=== PATIENT | male | born 1940 | race Caucasian/White ===

== ENCOUNTER → 2017-02-06 | Outpatient (CLI) | payer MEDICARE, OTHER | END | disposition home or self-care (01) | LOC: CFH 11:38 | PROVIDERS: ATTEND Nurse Practitioner Primary Care | DX: M25.421 Effusion, right elbow (principal); I10 Essential (primary) hypertension ==

== ENCOUNTER → 2017-09-16 | Outpatient (CLI) | payer MEDICARE, OTHER | END | disposition home or self-care (01) | LOC: CFH 15:25 | PROVIDERS: ATTEND Nurse Practitioner Primary Care | DX: N50.3 Cyst of epididymis (principal); N50.89 Other specified disorders of the male genital organs; R53.83 Other fatigue; I10 Essential (primary) hypertension; R23.8 Other skin changes; M25.421 Effusion, right elbow; F06.4 Anxiety disorder due to known physiological condition; M25.521 Pain in right elbow; N50.9 Disorder of male genital organs, unspecified; R73.01 Impaired fasting glucose | CPT/HCPCS: 76870; 93975 ==

== ENCOUNTER → 2017-11-07 | Outpatient (CLI) | payer MEDICARE, OTHER ==
[2017-11-07 15:01] LABS: BASOPHILS # (AUTO) 0.02 x10^3/uL (0-0.1); BASOPHILS % (AUTO) 0 % (0-1); EOSINOPHILS % (AUTO) 3 % (1-7); LYMPHOCYTES # (AUTO) 1.71 x10^3/uL (1-3.4); LYMPHOCYTES % (AUTO) 21 % (22-44); MD NO; MEAN CORPUSCULAR HEMOGLOBIN 31.5 pg (27.5-34.5); MEAN CORPUSCULAR VOLUME 92.7 fL (81-97); MONOCYTES # (AUTO) 0.77 x10^3/uL (0.2-0.8); MONOCYTES % (AUTO) 10 % (2-9); NEUTROPHILS # (AUTO) 5.36 x10^3/uL (1.8-6.8); NEUTROPHILS % (AUTO) 67 % (42-75); PLATELET COUNT 196 x10^3/uL (130-400); RED BLOOD COUNT 5.37 x10^6/uL (4.38-5.82); RED CELL DISTRIBUTION WIDTH 14.7 % (9.4-14.8)
[2017-11-07 15:07] LABS: MICROSCOPIC NOT IND
[2017-11-07 15:14] LABS: ALANINE AMINOTRANSFERASE 25 U/L (12-78); ALBUMIN 3.9 g/dL (3.4-5.0); ANION GAP 9 mmol/L (5-15); CALCIUM 9.3 mg/dL (8.5-10.1); CHLORIDE 110 mmol/L (98-107)
[2017-11-07 15:16] LABS: ALKALINE PHOSPHATASE 53 U/L (45-117); BILIRUBIN,TOTAL 0.4 mg/dL (0.2-1.0); TOTAL PROTEIN 6.9 g/dL (6.4-8.2)
[2017-11-07 15:27] LABS: INTERNATIONAL NORMALIZED RATIO 0.98 (0.93-1.1); PROTHROMBIN TIME 10.2 Seconds (9.6-11.5)
== END ==
LOC: STAR 13:52
PROVIDERS: ATTEND Student in an Organized Health Care Education/Training Program
DX: Z01.818 Encounter for other preprocedural examination (principal); R94.31 Abnormal electrocardiogram [ECG] [EKG]
CPT/HCPCS: 36415; 71046; 80053; 81003; 85025; 85610; 85730; 87086; 93005

== ENCOUNTER 2017-11-14 05:57 | Day surgery (SDC) | payer MEDICARE, OTHER ==
[~2017-11-14] VITALS: Ht 177.8 cm; Wt 84.9 kg
[~2017-11-14 05:57] MED LIST: LISI-170 PO; MULT-658 PO
[2017-11-14] MEDS ORDERED: LACTATED RINGERS 1,000 ML IV SCH (06:31)
[2017-11-14 06:53] VITALS: BP 154/92
[2017-11-14] MEDS ORDERED: BUPIVACAINE/PF 0.25% ONE (07:26)
[2017-11-14] MEDS ORDERED: EPINEPHRINE 1 MG/ML, 1ML ONE (07:27)
[2017-11-14] MEDS ORDERED: GABAPENTIN 300 MG CAPSULE PO ONE (07:30)
[2017-11-14] MEDS ORDERED: ACETAMINOPHEN 500 MG TABLET PO ONE (07:30)
[2017-11-14] MEDS ORDERED: FAMOTIDINE 20 MG TABLET PO ONE (07:30)
[2017-11-14] MEDS ORDERED: METOCLOPRAMIDE 10MG TABLET PO ONE (07:30)
[2017-11-14] MEDS ORDERED: TAMSULOSIN 0.4 MG CAP.ER.24H PO ONE (07:30)
[2017-11-14] MEDS ORDERED: FENTANYL PF 100 MCG/2ML ONE (07:36)
[2017-11-14] MEDS ORDERED: PROPOFOL 10 MG/ML, 20ML ONE (07:59)
[2017-11-14] MEDS ORDERED: CEFAZOLIN 1,000 MG ONE (07:59)
[2017-11-14] MEDS ORDERED: DEXAMETHASONE 4 MG/ML, 5ML ONE (07:59)
[2017-11-14] MEDS ORDERED: EPHEDRINE 50 MG/ML, 1ML ONE (07:59)
[2017-11-14] MEDS ORDERED: PROMETHAZINE 25 MG/ML, 1ML IV PRN (09:30)
[2017-11-14] MEDS ORDERED: FENTANYL PF 100 MCG/2ML IV PRN (09:30)
[2017-11-14] MEDS ORDERED: ONDANSETRON ODT 8 MG PO PRN (09:30)
[2017-11-14] MEDS ORDERED: KETOROLAC 30 MG/1 ML IV PRN (09:30)
[2017-11-14] MEDS ORDERED: OXYcodone 5 MG/5 ML ORAL.SOL UDC PO PRN (09:30)
== END 2017-11-14 12:50 ==
LOC: OUT 05:57
PROVIDERS: ATTEND Student in an Organized Health Care Education/Training Program
DX: N43.41 Spermatocele of epididymis, single (principal); I10 Essential (primary) hypertension; Z88.0 Allergy status to penicillin
CPT/HCPCS: 54840; 88304; J0171; J0690; J1100; J2704; J3010; J3490; J7120

== ENCOUNTER → 2020-01-21 | Outpatient (CLI) | payer MEDICARE, OTHER ==
[~2020-01-21] MED LIST changes: +LIDOCAINE 1%, 10ML ONE
== END | disposition home or self-care (01) ==
LOC: RAD 12:43
PROVIDERS: ATTEND Nurse Practitioner Primary Care
DX: E04.2 Nontoxic multinodular goiter (principal); Z88.0 Allergy status to penicillin; Z79.899 Other long term (current) drug therapy; Z72.89 Other problems related to lifestyle; Z82.49 Family history of ischemic heart disease and other diseases of the circulatory system
CPT/HCPCS: 10005; 10006; 88172; 88173